=== PATIENT | male | born 1980 | race Caucasian/White ===

== ENCOUNTER 2023-03-08 11:34 | Emergency (ER) | payer BC ==
[2023-03-08] MEDS ORDERED: Sodium Chloride 0.9% 10 ML Syringe FLUSH PRN (11:45)
[2023-03-08] MEDS ORDERED: Sodium Chloride 0.9% 2.5 ML Syringe FLUSH PRN (11:45)
[2023-03-08] MEDS ORDERED: Cyclobenzaprine 10 MG Tab PO ONE (11:59)
[2023-03-08 12:07] LABS: BASOPHILS ABSOLUTE AUTO 0.02 K/uL (0.00-0.20); BASOPHILS PERCENT AUTO 0.3 % (0.0-1.0); EOSINOPHILS ABSOLUTE AUTO 0.07 K/uL (0.00-0.45); EOSINOPHILS PERCENT AUTO 1.1 % (0.0-6.0); HEMATOCRIT 43.2 % (42.0-52.0); HEMOGLOBIN 15.3 g/dL (14.0-18.0); IMMATURE GRAN ABSOLUTE AUTO 0.07 K/uL (0.00-0.05); IMMATURE GRAN PERCENT AUTO 1.1 % (0.0-0.4); LYMPHOCYTES ABSOLUTE AUTO 1.87 K/uL (1.00-4.80); LYMPHOCYTES PERCENT AUTO 29.7 % (24.0-44.0); MEAN CORPUSCULAR HEMOGLOBIN 31.2 pg (28.0-32.0); MEAN CORPUSCULAR HGB CONC 35.4 g/dL (32.0-36.0); MEAN CORPUSCULAR VOLUME 88.2 fL (83.0-99.0); MEAN PLATELET VOLUME 9.2 fL (9.4-12.4); MONOCYTES ABSOLUTE AUTO 0.66 K/uL (0.00-0.80); MONOCYTES PERCENT AUTO 10.5 % (0.0-8.0); NEUTROPHILS PERCENT AUTO 57.3 % (41.0-71.0); PLATELET COUNT,PLT 175 K/uL (150-400); WHITE BLOOD CELL COUNT,WBC 6.29 K/uL (3.9-11.3)
[2023-03-08] MEDS ORDERED: Morphine 4 MG/ML Syringe IVPUSH ONE (12:30)
[2023-03-08] MEDS ORDERED: Naloxone 0.4 MG/ML SDV IVPUSH PRN (12:30)
[2023-03-08 12:42] LABS: A/G RATIO 1.1 (0.9-1.6); ALBUMIN 4.2 g/dL (3.4-5.0); BILIRUBIN TOTAL 0.4 mg/dL (0.2-1.0); CARBON DIOXIDE,CO2 29.3 mmol/L (21.0-32.0); CREATININE 0.9 mg/dL (0.8-1.3); EST CRCL DRUG DOSING (CG) 108.01 mL/min; POTASSIUM,K 4.1 mmol/L (3.5-5.1)
[2023-03-08] MEDS ORDERED: LORazepam 2 MG/ML SDV IVPUSH ONE (12:42)
[2023-03-08] MEDS ORDERED: Lidocaine 4% 1 each Patch TOP PRN (14:39)
[2023-03-08 14:55] VITALS: BP 127/80; PULSE 86
== END 2023-03-08 15:17 | disposition home or self-care (01) ==
LOC: MW.ED 11:34
DX: M42.04 Juvenile osteochondrosis of spine, thoracic region (principal); Z88.1 Allergy status to other antibiotic agents
CPT/HCPCS: 36415; 72128; 80053; 84484; 85025; 96374; 96375; 99284; A9270; J2060; J2270; J3490; 93010

== ENCOUNTER 2024-05-17 12:08 | Emergency (ER) | payer BC ==
[2024-05-17] MEDS: Ketorolac 30 MG/ML SDV IM ONE (13:30)
[2024-05-17] MEDS: Acetaminophen 325 MG Tab PO ONE (13:31)
[2024-05-17] MEDS: Lidocaine 4% 1 each Patch TOP ONE (13:31)
[2024-05-17] MEDS: Sodium Chloride 0.9% 1,000 ML IV STA (13:34)
[2024-05-17] MEDS: Diazepam 2 MG Tab PO ONE (14:25)
[2024-05-17 15:41] VITALS: BP 128/79; PULSE 84
== END 2024-05-17 15:40 | disposition home or self-care (01) ==
LOC: MW.ED 12:08
DX: M54.50 Low back pain, unspecified (principal); Z90.49 Acquired absence of other specified parts of digestive tract; Z88.8 Allergy status to other drugs, medicaments and biological substances; Z79.899 Other long term (current) drug therapy; Z75.8 Other problems related to medical facilities and other health care
CPT/HCPCS: 96372; 99283; A9270; J1885

== ENCOUNTER 2024-05-23 19:36 | Emergency (ER) | payer BC ==
[2024-05-23] MEDS: traMADol 50 MG Tab PO STA (21:16)
[2024-05-23] MEDS: Methocarbamol 750 MG Tab PO STA (21:16)
[2024-05-23 22:10] VITALS: BP 138/92; PULSE 89
== END 2024-05-23 22:12 | disposition home or self-care (01) ==
LOC: MW.ED 19:36
DX: M54.50 Low back pain, unspecified (principal); Z90.49 Acquired absence of other specified parts of digestive tract; Z88.8 Allergy status to other drugs, medicaments and biological substances; Z79.899 Other long term (current) drug therapy; Z75.8 Other problems related to medical facilities and other health care
CPT/HCPCS: 96372; 99283; A9270; J3360

== ENCOUNTER → 2024-09-16 | Emergency (ER) | payer BC ==
[~2024-09-16] MED LIST: Sodium Chloride 0.9% 10 ML Syringe FLUSH PRN; Sodium Chloride 0.9% 2.5 ML Syringe FLUSH PRN; Sodium Chloride 0.9% 20 ML SDV IV PRN
[2024-09-16] MEDS: Aspirin 81 MG Tab.Chew PO ONE (14:42)
[2024-09-16 14:51] LABS: BASOPHILS ABSOLUTE AUTO 0.02 K/uL (0.00-0.20); BASOPHILS PERCENT AUTO 0.3 % (0.0-1.0); EOSINOPHILS ABSOLUTE AUTO 0.05 K/uL (0.00-0.45); EOSINOPHILS PERCENT AUTO 0.8 % (0.0-6.0); HEMATOCRIT 42.5 % (42.0-52.0); IMMATURE GRAN ABSOLUTE AUTO 0.03 K/uL (0.00-0.05); IMMATURE GRAN PERCENT AUTO 0.5 % (0.0-0.4); LYMPHOCYTES ABSOLUTE AUTO 2.39 K/uL (1.00-4.80); LYMPHOCYTES PERCENT AUTO 37.1 % (24.0-44.0); MEAN CORPUSCULAR HEMOGLOBIN 31.8 pg (28.0-32.0); MEAN CORPUSCULAR HGB CONC 35.3 g/dL (32.0-36.0); MEAN PLATELET VOLUME 9.7 fL (9.4-12.4); MONOCYTES ABSOLUTE AUTO 0.46 K/uL (0.00-0.80); MONOCYTES PERCENT AUTO 7.1 % (0.0-8.0); NEUTROPHILS ABSOLUTE AUTO 3.49 K/uL (1.80-7.70); NEUTROPHILS PERCENT AUTO 54.2 % (41.0-71.0); PLATELET COUNT,PLT 202 K/uL (150-400); RED BLOOD CELL COUNT 4.72 M/uL (4.52-5.90); WHITE BLOOD CELL COUNT,WBC 6.44 K/uL (3.9-11.3)
[2024-09-16 15:34] LABS: A/G RATIO 1.4 (0.9-1.6); ALANINE AMINOTRANSFERASE,ALT 46 IU/L (14-63); ALBUMIN 4.7 g/dL (3.4-5.0); ALKALINE PHOSPHATASE 78 U/L (46-116); ASPARTATE AMNIOTRANSFERASE,AST 27 IU/L (15-37); BILIRUBIN TOTAL 0.3 mg/dL (0.2-1.0); BLOOD UREA NITROGEN,BUN 19 mg/dL (7.0-18.0); CALCIUM 9.5 mg/dL (8.5-10.1); CARBON DIOXIDE,CO2 28.5 mmol/L (21.0-32.0); CHLORIDE,CL 102 mmol/L (98-107); GLUCOSE RANDOM 97 mg/dL (74-106); LIPASE 68 U/L (16-77); MAGNESIUM 2.2 mg/dL (1.8-2.4); POTASSIUM,K 3.8 mmol/L (3.5-5.1); PRO B-TYPE NATRIUR PEPT,BNPPRO 5 pg/mL (0-125); SODIUM,NA 140 mmol/L (136-148)
[2024-09-16 15:37] LABS: ESTIMATED GFR 96 mL/min (>60)
[2024-09-16 15:42] LABS: D-DIMER QUANTITATIVE < 0.19 mg/L FEU (0.00-0.50)
[2024-09-16] MEDS: Sodium Chloride 0.9% 500 ML IV SCH (16:02)
[2024-09-16 16:29] LABS: APPEARANCE,URINE CLEAR; BILIRUBIN,URINE NEGATIVE (NEGATIVE); COLOR,URINE YELLOW; GLUCOSE,URINE NEGATIVE (NEGATIVE); KETONES,URINE NEGATIVE (NEGATIVE); LEUKOCYTE ESTERASE,URINE NEGATIVE (NEGATIVE); NITRITE,URINE NEGATIVE (NEGATIVE); OCCULT BLOOD,URINE NEGATIVE (NEGATIVE); PROTEIN,URINE NEGATIVE (NEGATIVE); UROBILINOGEN,URINE 0.2 EU/dL (<2.0)
[2024-09-16 16:37] LABS: AMPHETAMINES SCREEN, URINE NEGATIVE (CUTOFF=500); BARBITURATE SCREEN,URINE NEGATIVE (CUTOFF=200); BENZODIAZEPINES SCREEN,URINE NEGATIVE (CUTOFF=150); BUPRENORPHINE SCREEN,URINE NEGATIVE (CUTOFF=10); METHADONE SCREEN, URINE NEGATIVE (CUTOFF=200); METHAMPHETAMINES SCREEN, URINE NEGATIVE (CUTOFF=500); OXYCODONE SCREEN,URINE NEGATIVE (CUT0FF=100); PCP SCREEN,URINE NEGATIVE (CUTOFF=25); THC SCREEN,URINE 20 NG/ML NEGATIVE (CUTOFF=50)
[2024-09-16 17:14] LABS: CREATINE KINASE,CK 213 U/L (26-308)
[2024-09-16 19:11] VITALS: BP 130/92; PULSE 75
== END | disposition home or self-care (01) ==
LOC: MW.ED 13:33
DX: R07.89 Other chest pain (principal); Z90.49 Acquired absence of other specified parts of digestive tract; Z88.8 Allergy status to other drugs, medicaments and biological substances
CPT/HCPCS: 36415; 71046; 80053; 80305; 81003; 82550; 83605; 83690; 83735; 83880; 84484; 85025; 85379; 85610; 85730; 87040; 93005; 99285; A9270; J7040; 93010; 99284